=== PATIENT | female | born 1985 | race Hispanic/Latino ===

== ENCOUNTER 2019-11-28 05:03 | Observation (INO) | payer BC, MEDICAID ==
[~2019-11-28] VITALS: Ht 149.9 cm; Wt 69.9 kg
[2019-11-28] MEDS ORDERED: LACTATED RINGERS 1000ML 1,000 ML IV SCH (05:15)
[2019-11-28] MEDS ORDERED: PREN-196 PO (05:21)
[2019-11-28 05:53] VITALS: BP 111/56
[2019-11-28 06:19] LABS: APPEARANCE,URINE Clear (CLEAR); BILIRUBIN,URINE Negative (NEGATIVE); COLOR,URINE Yellow (YELLOW); GLUCOSE, URINE (UA) Negative (NEGATIVE); KETONES,URINE Negative (NEGATIVE); LEUKOCYTE ESTERASE ,URINE Negative (NEGATIVE); NITRATE,URINE Negative (NEGATIVE); OCCULT BLOOD,URINE Negative (NEGATIVE); PROTEIN,URINE Negative (NEGATIVE); UROBILINOGEN,URINE 0.2 mg/dL (0.2-1.0)
[2019-11-28 06:24] LABS: AMPHET/METH SCREEN,URINE NEGATIVE (NEGATIVE); BARBITURATE SCREEN, URINE NEGATIVE (NEGATIVE); BENZODIAZEPINES SCREEN,URINE NEGATIVE (NEGATIVE); CANNABINOID SCREEN,URINE NEGATIVE (NEGATIVE); COCAINE SCREEN,URINE NEGATIVE (NEGATIVE); OPIATE SCREEN,URINE NEGATIVE (NEGATIVE); PHENCYCLIDINE SCREEN,URINE NEGATIVE (NEGATIVE)
== END 2019-11-28 08:49 | disposition home or self-care (01) ==
LOC: EDH 05:03 → LDH 05:04
PROVIDERS: ADMIT Obstetrics & Gynecology; ATTEND Obstetrics & Gynecology
DX: O62.9 Abnormality of forces of labor, unspecified (principal); O09.513 Supervision of elderly primigravida, third trimester; Z3A.39 39 weeks gestation of pregnancy
CPT/HCPCS: 80305; 81003; 96360; 96361; 99284; G0378 ×3; J7120

== ENCOUNTER 2020-09-27 10:29 | Observation (INO) | payer MEDICAID ==
[~2020-09-27] VITALS: Ht 149.9 cm; Wt 66.2 kg
[~2020-09-27 10:29] MED LIST: PREN-196 PO
[2020-09-27 11:09] LABS: APPEARANCE,URINE Clear (CLEAR); BILIRUBIN,URINE Small (NEGATIVE); COLOR,URINE Dark Yellow (YELLOW); GLUCOSE, URINE (UA) Negative (NEGATIVE); KETONES,URINE >=160 mg/dL (NEGATIVE); LEUKOCYTE ESTERASE ,URINE Trace (NEGATIVE); NITRATE,URINE Negative (NEGATIVE); OCCULT BLOOD,URINE Negative (NEGATIVE); PROTEIN,URINE POS 1+ mg/dL (NEGATIVE)
[2020-09-27 11:14] LABS: BACTERIA,URINE Rare /HPF (None Seen); MUCUS,URINE Few LPF (None Seen); RBC,URINE 0-1 /HPF (0-1); SQUAMOUS EPITHELIAL CELL,UR Rare /HPF (0-2); WBC,URINE 0-1 /HPF (0-1)
[2020-09-27 11:17] LABS: AMPHET/METH SCREEN,URINE NEGATIVE (NEGATIVE); BARBITURATE SCREEN, URINE NEGATIVE (NEGATIVE); BENZODIAZEPINES SCREEN,URINE NEGATIVE (NEGATIVE); CANNABINOID SCREEN,URINE POSITIVE (NEGATIVE); COCAINE SCREEN,URINE NEGATIVE (NEGATIVE); OPIATE SCREEN,URINE NEGATIVE (NEGATIVE); PHENCYCLIDINE SCREEN,URINE NEGATIVE (NEGATIVE)
[2020-09-27] MEDS ORDERED: LACTATED RINGERS 1000ML 1,000 ML IV ONE (11:45)
[2020-09-27] MEDS ORDERED: ONDANSETRON 4MG INJ IVP SCH (12:00)
[2020-09-27] MEDS ORDERED: LACTATED RINGERS 1000ML 1,000 ML IV PRN (12:00)
[2020-09-27 12:18] VITALS: BP 128/70
== END 2020-09-27 12:45 | disposition home or self-care (01) ==
LOC: EDH 10:29 → LDH 10:30
PROVIDERS: ADMIT Obstetrics & Gynecology; ATTEND Obstetrics & Gynecology
DX: O21.2 Late vomiting of pregnancy (principal); O26.893 Other specified pregnancy related conditions, third trimester; R19.7 Diarrhea, unspecified; Z3A.35 35 weeks gestation of pregnancy; Z79.899 Other long term (current) drug therapy
CPT/HCPCS: 59025; 80305; 81001; 96361; 96374; G0378 ×2; J2405; J7120 ×2; 96360; 96372

== ENCOUNTER 2022-01-07 13:36 | Emergency (ER) | payer MEDICAID ==
[~2022-01-07] VITALS: Ht 149.9 cm; Wt 54.0 kg
[2022-01-07 13:41] VITALS: BP 133/76
[2022-01-07 13:56] LABS: APPEARANCE,URINE CLEAR (CLEAR); BILIRUBIN,URINE NEGATIVE (NEGATIVE); COLOR,URINE YELLOW (YELLOW); GLUCOSE, URINE (UA) NEGATIVE (NEGATIVE); KETONES,URINE 40 mg/dL (NEGATIVE); LEUKOCYTE ESTERASE ,URINE NEGATIVE Leu/uL (NEGATIVE); NITRATE,URINE NEGATIVE (NEGATIVE); OCCULT BLOOD,URINE MODERATE (NEGATIVE); PROTEIN,URINE 30 mg/dL (NEGATIVE); UROBILINOGEN,URINE 0.2 mg/dL (0.2-1.0)
[2022-01-07 14:05] LABS: HCG,QUALITATIVE URINE NEGATIVE (NEGATIVE)
[2022-01-07 14:09] LABS: BACTERIA,URINE RARE /HPF (None Seen); MUCUS,URINE FEW LPF (None Seen); RBC,URINE 51-100 /HPF (0-1); SQUAMOUS EPITHELIAL CELL,UR FEW /HPF (0-2)
[2022-01-07 15:29] LABS: BASOPHILS % (AUTO) 0.2 % (0.0-5.0); HEMATOCRIT 42.8 % (36-48); MEAN CORPUSCULAR HGB CONC 32.5 g/dL (32.0-36.0); MEAN CORPUSCULAR VOLUME 89.4 fL (79-99); MONOCYTES % (AUTO) 3.8 % (3.0-13.0); NEUTROPHILS % (AUTO) 89.8 % (40.0-77.0); PLATELET COUNT (AUTO) 312 K/uL (130-400); RED BLOOD CELL COUNT(AUTO) 4.79 MIL/uL (4.00-5.50); RED CELL DISTRIBUTION WIDTH 13.5 % (11.0-15.5); WHITE BLOOD COUNT (AUTO) 12.4 K/uL (4.8-10.8)
[2022-01-07 15:50] LABS: CREATININE 0.8 mg/dL (0.5-1.5); POTASSIUM 4.2 mmol/L (3.5-5.1)
[2022-01-07 15:55] LABS: ALBUMIN 4.3 g/dL (3.5-5.0); TOTAL PROTEIN, SERUM 8.5 g/dL (6.0-8.3)
[2022-01-07] MEDS ORDERED: IBUP-1493 PO (17:57)
[2022-01-07] MEDS ORDERED: TAMS-1 PO (17:57)
[2022-01-07] MEDS ORDERED: KETOROLAC 30MG VIAL (30MG/ML) IVP SCH (18:00)
[2022-01-07] MEDS ORDERED: KETOROLAC 30MG VIAL (30MG/ML) ONE (18:02)
== END 2022-01-07 18:30 | disposition home or self-care (01) ==
LOC: EDH 13:36
DX: N20.0 Calculus of kidney (principal)
CPT/HCPCS: 99284; 74176; 96374; 80053; 84703; 85025; 81001; 81025; 36415; J1885

== ENCOUNTER 2022-02-11 19:16 | Emergency (ER) | payer MEDICAID ==
[~2022-02-11] VITALS: Ht 149.9 cm; Wt 54.4 kg
[~2022-02-11 19:16] MED LIST changes: +IBUP-1493 PO; +TAMS-1 PO
[2022-02-11] MEDS ORDERED: MORPHINE 2 MG SYG IVP ONE (20:00)
[2022-02-11] MEDS ORDERED: KETOROLAC 30MG VIAL (30MG/ML) IVP ONE (20:00)
[2022-02-11] MEDS ORDERED: ONDANSETRON 4MG INJ IVP ONE (20:00)
[2022-02-11 20:01] LABS: BASOPHILS % (AUTO) 0.1 % (0.0-5.0); HEMATOCRIT 38.1 % (36-48); LYMPHOCYTES % (AUTO) 6.6 % (21.0-51.0); MEAN CORPUSCULAR HEMOGLOBIN 29.7 pg (27.0-33.0); MEAN CORPUSCULAR HGB CONC 33.6 g/dL (32.0-36.0); MEAN CORPUSCULAR VOLUME 88.4 fL (79-99); MONOCYTES % (AUTO) 7.8 % (3.0-13.0); NEUTROPHILS % (AUTO) 85.1 % (40.0-77.0); PLATELET COUNT (AUTO) 334 K/uL (130-400); RED BLOOD CELL COUNT(AUTO) 4.31 MIL/uL (4.00-5.50); RED CELL DISTRIBUTION WIDTH 14.5 % (11.0-15.5); WHITE BLOOD COUNT (AUTO) 14.4 K/uL (4.8-10.8)
[2022-02-11 20:02] LABS: APPEARANCE,URINE CLEAR (CLEAR); BILIRUBIN,URINE NEGATIVE (NEGATIVE); COLOR,URINE YELLOW (YELLOW); GLUCOSE, URINE (UA) NEGATIVE (NEGATIVE); KETONES,URINE 60 mg/dL (NEGATIVE); LEUKOCYTE ESTERASE ,URINE NEGATIVE Leu/uL (NEGATIVE); NITRATE,URINE NEGATIVE (NEGATIVE); OCCULT BLOOD,URINE NEGATIVE (NEGATIVE); PH,URINE 6.5 (5.0-8.0); PROTEIN,URINE 70 mg/dL (NEGATIVE); UROBILINOGEN,URINE 0.2 mg/dL (0.2-1.0)
[2022-02-11 20:05] LABS: BACTERIA,URINE RARE /HPF (None Seen); MUCUS,URINE RARE LPF (None Seen); SQUAMOUS EPITHELIAL CELL,UR MOD /HPF (0-2)
[2022-02-11 20:14] LABS: CREATININE 1.1 mg/dL (0.5-1.5); POTASSIUM 3.9 mmol/L (3.5-5.1)
[2022-02-11 20:15] VITALS: BP 152/85
[2022-02-11 20:21] LABS: ALBUMIN 3.7 g/dL (3.5-5.0); TOTAL PROTEIN, SERUM 7.6 g/dL (6.0-8.3)
[2022-02-11] MEDS ORDERED: TAMS-1 PO (21:51)
[2022-02-11] MEDS ORDERED: IBUP-1493 PO (21:51)
== END 2022-02-11 22:24 | disposition home or self-care (01) ==
LOC: EDH 19:16
DX: N20.0 Calculus of kidney (principal); Z98.890 Other specified postprocedural states
CPT/HCPCS: 99285; 74176; 96374; 71045; 96375; 82550; 84484; 80053; 83690; 85025; 81001; 36415; 93005; J2405; J1885

== ENCOUNTER 2022-12-01 22:28 | Emergency (ER) | payer MEDICAID, OTHER ==
[~2022-12-01] VITALS: Ht 149.9 cm; Wt 59.9 kg
[2022-12-01 23:49] LABS: INFLUENZA TYPE A Negative For Type A (NEGATIVE)
[2022-12-01 23:56] VITALS: BP 106/68; PULSE 78; RESP 16; O2SAT 98
[2022-12-01 23:57] LABS: INFLUENZA TYPE B Positive For Type B (NEGATIVE)
[2022-12-02 00:08] LABS: COVID19 (SARS ANTIGEN RAPID) POSITIVE FOR SARS AG (NEGATIVE)
[2022-12-02] MEDS ORDERED: ONDA4TAB10 PO (00:16)
[2022-12-02] MEDS ORDERED: OSEL75 PO (00:16)
[2022-12-02] MEDS ORDERED: BENZ-226 PO (00:16)
== END 2022-12-02 00:23 | disposition home or self-care (01) ==
LOC: EDH 22:28
DX: J10.1 Influenza due to other identified influenza virus with other respiratory manifestations (principal); Z20.822 Contact with and (suspected) exposure to COVID-19; Z79.899 Other long term (current) drug therapy
CPT/HCPCS: 87426; 87804; 87880